=== PATIENT | female | born 1980 | race Caucasian/White ===

== ENCOUNTER 2021-09-21 00:45 | Observation (INO) ==
[2021-09-21 07:59] VITALS: O2SAT 98
[2021-09-21 12:16] LABS: Influenza A PCR Negative (Negative); Influenza B PCR Negative (Negative); Resp. Syncytial Virus PCR Negative (Negative)
[2021-09-21 12:24] LABS: SARS-CoV-2 by PCR (In House) Negative (Negative)
[2021-09-21] MEDS ORDERED: hydrOXYzine pamoate 25 MG CAPSULE PO PRN (13:14)
[2021-09-21] MEDS ORDERED: Haloperidol Lactate 5 MG/ML VIAL IM PRN (13:14)
[2021-09-21] MEDS ORDERED: traZODone 50 MG TABLET PO PRN (13:14)
[2021-09-21] MEDS ORDERED: MOM Conc 10 ML UD.LIQ PO PRN (13:14)
[2021-09-21] MEDS ORDERED: Ibuprofen 400 MG TABLET PO PRN (13:14)
[2021-09-21] MEDS ORDERED: Mag Hydrox/Al Hydrox/Simeth 30 ML UDC PO PRN (13:14)
[2021-09-21] MEDS ORDERED: Acetaminophen 325 MG TABLET PO PRN (13:14)
[2021-09-21] MEDS ORDERED: *HR* LORazepam 1 MG TABLET PO PRN (13:14)
[2021-09-21] MEDS ORDERED: haloperidoL 5 MG TABLET PO PRN (13:14)
[2021-09-21] MEDS ORDERED: *HR* LORazepam 2 MG/ML VIAL IM PRN (13:14)
[2021-09-21] MEDS: Nicotine 2 MG GUM BC PRN ×2 (16:32→19:17)
[2021-09-21] MEDS: Nitrofurantoin (BID) 100 MG CAPSULE PO SCH (18:04)
[2021-09-21] MEDS ORDERED: Lithium Carbonate ER 300 MG TABLET.ER PO SCH (21:00)
[2021-09-22] MEDS ORDERED: Levothyroxine 25 MCG TABLET PO SCH (06:30)
[2021-09-22] MEDS ORDERED: Nitrofurantoin (BID) 100 MG CAPSULE PO SCH (08:00)
[2021-09-22] MEDS: Nicotine 2 MG GUM BC PRN ×2 (08:38→13:10)
[2021-09-22] MEDS: Nitrofurantoin (BID) 100 MG CAPSULE PO SCH (08:38)
[2021-09-22] MEDS ORDERED: FLUoxetine 20 MG CAPSULE PO SCH (09:00)
[2021-09-22 10:38] VITALS: BP 110/72; PULSE 74; TEMP 98.7
== END 2021-09-22 16:00 | disposition home or self-care (01) ==
LOC: EMEROOARM 00:45 → 1ANU 13:10 → INTOOBSV 13:10 → 1ANU 14:10
PROVIDERS: ADMIT Psychiatry & Neurology Psychiatry; ATTEND Psychiatry & Neurology Psychiatry

== ENCOUNTER 2022-03-15 18:24 | Inpatient (IN) ==
[2022-03-15] MEDS ORDERED: Tdap (Boostrix) Vaccine 0.5 ML SYRINGE IM ONE (19:09)
[2022-03-15 19:20] LABS: Bilirubin,Urine Negative (Negative); Blood,Urine Moderate (Negative); Clarity,Urine Clear (Clear); Color,Urine Colorless (Yellow); Glucose,Urine (UA) Normal (Normal); Ketones,Urine Negative (Negative); Leukocyte Esterase,Urine Negative (Negative); Mucus,Urine Few per lpf (None-Few); Nitrite,Urine Negative (Negative); Protein,Urine Negative (Neg-Trace); RBC,Urine 0-3 per hpf (0-3); Specific Gravity,Urine 1.005 (1.010-1.025); Squamous Epithelial Cell,Urine Few per hpf (None-Few); Urobilinogen,Urine Normal (Normal); WBC,Urine 0-3 per hpf (0-3)
[2022-03-16] MEDS ORDERED: Lithium Oral Soln 300 MG/5 ML (8 mEq/5mL) UDC PO ONE (01:57)
[2022-03-16] MEDS ORDERED: Lithium Carbonate ER 300 MG TABLET.ER PO ONE (02:45)
[2022-03-16 05:06] LABS: Influenza A PCR Negative (Negative); Influenza B PCR Negative (Negative); Resp. Syncytial Virus PCR Negative (Negative)
[2022-03-16 05:07] LABS: SARS-CoV-2 by PCR (In House) Negative (Negative)
[2022-03-16] MEDS ORDERED: *HR* LORazepam 1 MG TABLET PO PRN (05:42)
[2022-03-16] MEDS ORDERED: haloperidoL 5 MG TABLET PO PRN (05:42)
[2022-03-16] MEDS ORDERED: *HR* LORazepam 2 MG/ML VIAL IM PRN (05:42)
[2022-03-16] MEDS ORDERED: Haloperidol Lactate 5 MG/ML VIAL IM PRN (05:42)
[2022-03-16] MEDS ORDERED: Ibuprofen 400 MG TABLET PO PRN (06:00)
[2022-03-16] MEDS: Levothyroxine 25 MCG TABLET PO SCH (08:39)
[2022-03-16] MEDS: Nicotine 2 MG GUM BC PRN ×4 (09:44→21:03)
[2022-03-16] MEDS ORDERED: Mag Hydrox/Al Hydrox/Simeth 30 ML UDC PO PRN (11:50)
[2022-03-16] MEDS ORDERED: Acetaminophen 325 MG TABLET PO PRN (11:50)
[2022-03-16] MEDS ORDERED: Levothyroxine 25 MCG TABLET PO SCH (12:00)
[2022-03-16] MEDS ORDERED: MULTIVITAMIN PO SCH (12:00)
[2022-03-16] MEDS: FLUoxetine HCl 10 MG CAPSULE PO SCH (14:11)
[2022-03-16] MEDS: Vitamin B Complex/Vit C/Vit E 1 EACH TABLET PO SCH (14:11)
[2022-03-16] MEDS ORDERED: MOM Conc 10 ML UD.LIQ PO PRN (21:00)
[2022-03-16] MEDS: Lithium Carbonate ER 300 MG TABLET.ER PO SCH (21:03)
[2022-03-16] MEDS: hydrOXYzine pamoate 25 MG CAPSULE PO PRN (21:03)
[2022-03-16] MEDS: traZODone 50 MG TABLET PO PRN (21:03)
[2022-03-17] MEDS: traZODone 50 MG TABLET PO PRN ×3 (01:33→23:52)
[2022-03-17] MEDS: Levothyroxine 25 MCG TABLET PO SCH (05:53)
[2022-03-17 08:27] LABS: Thyroid Stimulating Hormone 3.732 mcIU/mL (0.340-5.600)
[2022-03-17] MEDS: hydrOXYzine pamoate 25 MG CAPSULE PO PRN ×3 (10:03→23:52)
[2022-03-17] MEDS: Nicotine 2 MG GUM BC PRN ×4 (10:03→21:50)
[2022-03-17] MEDS: Vitamin B Complex/Vit C/Vit E 1 EACH TABLET PO SCH (10:03)
[2022-03-17] MEDS: FLUoxetine HCl 10 MG CAPSULE PO SCH (10:03)
[2022-03-17] MEDS: Lithium Carbonate ER 300 MG TABLET.ER PO SCH (21:49)
[2022-03-18] MEDS: Levothyroxine 25 MCG TABLET PO SCH (06:44)
[2022-03-18] MEDS: FLUoxetine HCl 10 MG CAPSULE PO SCH (09:06)
[2022-03-18] MEDS: Vitamin B Complex/Vit C/Vit E 1 EACH TABLET PO SCH (09:06)
[2022-03-18] MEDS: Nicotine 2 MG GUM BC PRN ×4 (09:07→21:31)
[2022-03-18] MEDS: traZODone 50 MG TABLET PO PRN ×2 (21:29→22:45)
[2022-03-18] MEDS: Lithium Carbonate ER 300 MG TABLET.ER PO SCH (21:29)
[2022-03-18] MEDS: hydrOXYzine pamoate 25 MG CAPSULE PO PRN (21:29)
[2022-03-19] MEDS: Nicotine 2 MG GUM BC PRN (08:55)
[2022-03-19] MEDS: FLUoxetine HCl 10 MG CAPSULE PO SCH (08:56)
[2022-03-19] MEDS: Levothyroxine 25 MCG TABLET PO SCH (08:56)
[2022-03-19] MEDS: Vitamin B Complex/Vit C/Vit E 1 EACH TABLET PO SCH (08:56)
[2022-03-19 09:19] VITALS: BP 113/67; PULSE 77; TEMP 98; O2SAT 100
== END 2022-03-19 12:25 | disposition home or self-care (01) | DRG 753 ==
LOC: EMEROOARM 18:24 → 1ANU 03-16 05:18
PROVIDERS: ADMIT Psychiatry & Neurology Psychiatry; ATTEND Psychiatry & Neurology Psychiatry